=== PATIENT | female | born 1970 | race African-American/Black ===

== ENCOUNTER → 2022-02-22 | Outpatient (CLI) | payer OTHER ==
[~2022-02-22] MED LIST: ADVAIR IH; ALBUTEROL0.83 MG/ML IH; AMITRIPTYLINE H25 M1 PO; FLEXERIL; PREDNISONE20 MG PO; PRILOSEC 20MG20 MG PO; PROMETHAZINE D118 ML; RT ADVAIR 228 DISKUS IH; ZITHROMAX 250M250 MG PO; ZYFLO600 MG PO; ZYRTEC 10MG10 MG PO
== END ==
LOC: MC.RAD 08:53
DX: Z12.31 Encounter for screening mammogram for malignant neoplasm of breast (principal)